=== PATIENT | female | born 1960 | race Caucasian/White ===

== ENCOUNTER 2025-01-17 22:03 | Inpatient (IN) | payer OTHER ==
[~2025-01-17] VITALS: Ht 162.6 cm; Wt 74.5 kg
[2025-01-17 22:06] VITALS: O2SAT 98
[2025-01-17 23:50] LABS: BASOPHILS % 1.1 % (0.0-2.0); EOSINOPHILS % 2.0 % (0.0-5.0); HEMATOCRIT. 41.2 % (36.0-48.0); HEMOGLOBIN. 13.6 g/dL (12.0-16.0); LYMPHOCYTES % 31.2 % (20.0-50.0); MEAN PLATELET VOLUME 10.2 fl (7.4-10.4); MONOCYTES % 5.0 % (2.0-8.0); NEUTROPHILS % 60.7 % (40.0-76.0); PLATELET 275 x1000/uL (130-400); RED BLOOD CELL COUNT 4.71 mill/uL (4.2-5.4); RED CELL DISTRIBUTION WIDTH 13.0 % (11.6-14.6)
[2025-01-17 23:58] LABS: CREATININE 1.0 mg/dL (0.6-1.0); UREA NITROGEN BLOOD 19 mg/dL (9-23)
[2025-01-17 23:59] LABS: ETHANOL BLOOD < 10 mg/dL (<10); INR 0.9; PROTEIN TOTAL 7.0 g/dL (6.0-8.3)
[2025-01-18] LABS: ASPARTATE AMINOTRANSFERASE 18 IU/L (<34); BILIRUBIN DIRECT 0.1 mg/dL (<=3.0); TROPONIN I HIGH SENSITIVITY < 4 ng/L (3.0-34)
[2025-01-18] LABS: CLARITY URINE CLEAR (CLEAR); COLOR URINE YELLOW (YELLOW); GLUCOSE URINE 3+ (NEGATIVE); KETONES URINE 1+ (NEGATIVE); LEUKOCYTE ESTERASE URINE NEGATIVE (NEGATIVE); NITRITE URINE NEGATIVE (NEGATIVE); OCCULT BLOOD URINE NEGATIVE (NEGATIVE); PH URINE 5.0 (4.5-8.0); PROTEIN URINE NEGATIVE (NEGATIVE); SPECIFIC GRAVITY URINE 1.046 (1.005-1.030); UROBILINOGEN URINE 0.2 E.U./dL (0.2-1.0)
[2025-01-18 00:01] LABS: BILIRUBIN TOTAL 0.5 mg/dL (0.1-1.0)
[2025-01-18 00:47] LABS: *AMPHETAMINES SCREEN URINE NEGATIVE (NEGATIVE); *BARBITURATES SCREEN URINE NEGATIVE (NEGATIVE); *BENZODIAZEPINES SCREEN URINE NEGATIVE (NEGATIVE); *COCAINE SCREEN URINE NEGATIVE (NEGATIVE); METHADONE URINE SCREEN NEGATIVE (NEGATIVE)
[2025-01-18 00:48] LABS: CANNABINOID URINE SCREEN NEGATIVE (NEGATIVE); ECSTASY MDMA SCREEN URINE NEGATIVE (NEGATIVE); OPIATES URINE SCREEN NEGATIVE (NEGATIVE); PHENCYCLIDINE URINE SCREEN NEGATIVE (NEGATIVE)
[2025-01-18 00:55] LABS: BACTERIA URINE NONE SEEN; SQUAMOUS EPITHELIAL CELL URINE NONE SEEN /lpf (RARE/1+)
[2025-01-18 00:56] LABS: RBC URINE NONE SEEN /hpf (0-2); WBC URINE NONE SEEN /hpf (0-2)
[2025-01-18] MEDS ORDERED: CLONIDINE 0.1MG TABLET PO PRN (01:45)
[2025-01-18] MEDS ORDERED: IPRATROPIUM/ALBUTEROL 0.5-3(2.5)MG/3ML NEB HHN PRN (01:45)
[2025-01-18] MEDS ORDERED: MAGNESIUM/ALUMINUM HYDROXIDE/SIMETHICONE 30ML UDC PO PRN (01:45)
[2025-01-18] MEDS ORDERED: GUAIFENESIN 200MG/10ML SUGAR FREE UDC PO PRN (01:45)
[2025-01-18] MEDS ORDERED: ONDANSETRON HCL 4MG/2ML INJ IV PRN (01:45)
[2025-01-18] MEDS ORDERED: DEXTROSE 50% WATER 50ML SYRINGE IV PRN (01:45)
[2025-01-18] MEDS ORDERED: ACETAMINOPHEN 325MG TABLET PO PRN ×2 (01:45)
[2025-01-18] MEDS ORDERED: DOCUSATE SODIUM 100MG CAPSULE PO PRN (01:45)
[2025-01-18] MEDS: SODIUM CHLORIDE 0.9% 500 ML IV ONE (04:03)
[2025-01-18 05:03] VITALS: BP 125/75; PULSE 68; RESP 17; TEMP 36.6; O2SAT 96
[2025-01-18 06:52] VITALS: BP 125/75; PULSE 70; RESP 16; TEMP 36.974
[2025-01-18 08:00] VITALS: BP 112/73; PULSE 65; RESP 17; TEMP 36.6; O2SAT 97
[2025-01-18] MEDS: PANTOPRAZOLE SODIUM 40 MG/VIAL IV SCH (10:18)
[2025-01-18] MEDS: ENOXAPARIN 40MG/0.4ML SYR SUBCUT SCH (10:20)
[2025-01-18] MEDS: ASPIRIN 81MG EC TABLET PO SCH (10:20)
[2025-01-18 10:34] LABS: TROPONIN I HIGH SENSITIVITY < 4 ng/L (3.0-34)
[2025-01-18 10:35] LABS: PHOSPHORUS 2.7 mg/dL (2.5-4.9)
[2025-01-18 10:37] LABS: T4 FREE 1.02 ng/dL (0.89-1.76)
[2025-01-18] MEDS: BLOOD SUGAR DIAGNOSTIC STRIP TEST SCH (11:50)
[2025-01-18 12:00] VITALS: BP 112/73; PULSE 65; RESP 17; TEMP 36.6; O2SAT 98
[2025-01-18] MEDS: INSULIN LISPRO 100 UNITS/ML SUBCUT SCH (12:20)
[2025-01-18 16:00] VITALS: BP 117/74; PULSE 67; RESP 20; TEMP 36.6; O2SAT 98
[2025-01-18] MEDS ORDERED: ASPI-1497 PO (16:00)
[2025-01-18] MEDS ORDERED: CLOP75TA33 PO (16:03)
[2025-01-18] MEDS ORDERED: ATOR40TA70 MT (16:05)
[2025-01-18 16:48] VITALS: BP 125/75; PULSE 70; RESP 16; TEMP 98.5
[2025-01-18] MEDS ORDERED: ATORVASTATIN CALCIUM 40MG TABLET PO SCH (21:00)
== END 2025-01-18 18:28 | disposition home or self-care (01) | DRG 47 ==
LOC: ER 22:03 → 3WST 01-18 00:39 → EDBEDREQDT 01-18 00:50 → EDBEDREQTM 01-18 00:50 → EDBEDREQ 01-18 00:50
PROVIDERS: ADMIT Internal Medicine; ATTEND Internal Medicine
DX: G45.9 Transient cerebral ischemic attack, unspecified (principal); E11.9 Type 2 diabetes mellitus without complications; Z79.02 Long term (current) use of antithrombotics/antiplatelets; R07.89 Other chest pain; J98.11 Atelectasis; Z88.5 Allergy status to narcotic agent; Z88.8 Allergy status to other drugs, medicaments and biological substances; Z86.73 Personal history of transient ischemic attack (TIA), and cerebral infarction without residual deficits; Z82.49 Family history of ischemic heart disease and other diseases of the circulatory system; Z79.899 Other long term (current) drug therapy; Z79.4 Long term (current) use of insulin; Z79.82 Long term (current) use of aspirin
CPT/HCPCS: 36415; 71045; 80048; 80076; 80305; 80320; 81003; 82962; 83036; 83735; 83880; 84100; 84439; 84443; 84484; 85025; 93005; 99285; A4606; J1650; J2470; G0480